=== PATIENT | male | born 2000 ===

== ENCOUNTER 2024-11-12 01:05 | Emergency (ER) | payer OTHER ==
[2024-11-12] MEDS ORDERED: Lidocaine 1% (PF) 30 ML VIAL ONE (01:26)
== END 2024-11-12 06:10 ==
LOC: NAV ERS 01:05 → EEVIPCON 01:05 → NAV ERS 06:10
DX: S01.112A Laceration without foreign body of left eyelid and periocular area, initial encounter (principal); F17.200 Nicotine dependence, unspecified, uncomplicated; Y04.0XXA Assault by unarmed brawl or fight, initial encounter
CPT/HCPCS: 12011; 70486